=== PATIENT | female | born 1990 | race Caucasian/White ===

== ENCOUNTER 2016-08-10 06:42 | Emergency (ER) | payer MEDICAID ==
[2016-08-10 06:42] VITALS: BMI 34.4
[2016-08-10 07:01] VITALS: BP 129/58; PULSE 92; TEMP 97.8
--- NOTE | 2016-08-10 08:48 | EDPRACDOC ---
- General Information Chief Complaint: Neck Pain Stated Complaint: TONGUE PAIN Time Seen by Provider: 08/10/16 08:39 Information Source: Patient Home Medications: Home Medications Amox Tr/Potassium Clavulanate [Augmentin Tablet (875mg/125mg)] 1 tab PO BID #20 tablet 08/10/16 Allergies/Adverse Reactions: Allergies Allergy/AdvReac Type Severity Reaction Status Date / Time No Known Allergies Allergy Verified 05/29/16 03:43 - History of Present Illness Onset: 3 days HPI: PAIN LEFT SIDE OF MANDIBLE, AND SOME SWELLING UNDER THE LEFT SIDE OF THE TONGUE. NO SORE THROAT, NO FEVER NO TROUBLE SWALLOWING NO TROUBLE BREATHING. SYMPTOMS HAVE BEEN GOING ON FOR APPROXIMATELY 3 DAYS. ED Past Medical History - History Reviewed Yes Nurses notes reviewed and agree except as marked - Patient Medical History Psychological History: Denies: Depression Systemic History: Denies: Anemia, Lupus Surgical History: Reports: Other (). Denies: Hysterectomy Additional Past Surgical History: BILATERAL TUBAL LIGATION - Family Medical History Reports: Hypertension (FATHER), Diabetes (FATHER), Cancer (MGM, PGM), Cardiac Disorders (FATHER). Denies: Stroke - Social Medical History Smoking Status: Heavy tobacco smoker (5 or more cigarettes/day or daily pipe/ cigar) EDM Review of Systems - Review of Systems ROS Negative Except as Marked: Yes All systems reviewed and were negative except as marked - Physical Exam Constitutional: No apparent distress, Alert Last recorded Vital Signs: Last Vital Signs Temp 97.8 F 08/10/16 06:57 Pulse 92 08/10/16 06:57 Resp 16 08/10/16 06:57 BP 129/58 L 08/10/16 06:57 Pulse Ox 97 08/10/16 06:57 Oxygen Pulse Oxygen Saturation 97 O2 Device Oxygen Flow Rate Fraction of Inspired Oxygen ( FIO2) - HEENT Head: Normal Eye Exam: Normal Oropharynx: Normal, Other (FLOOR OF MOUTH IS SOFT, NO PALPABLE MASSES.) Tympanic Membrane: Normal ENT EAC: Normal TMJ: Normal Nose: No Symptoms Reported Neck: Other (LEFT SUBMANDIBULAR SALIVARY GLAND SLIGHTLY SWOLLEN TENDER PALPATION.). negative: Limited ROM, Lymphadenopathy, Meningeal Signs - Departure Condition: Stable Final Diagnosis: Sialadenitis Education/Counseling Given To: Patient Education/Counseling Given Regarding: Diagnosis, Treatment, Prognosis Referrals: Mari Valle PA [Primary Care Provider] - One Week José Luis Enacrnacion DO [Staff Physician] - One Week Prescriptions: Amox Tr/Potassium Clavulanate [Augmentin Tablet (875mg/125mg)] 1 tab PO BID #20 tablet Additional Instructions: USE SOUR CANDY FREQUENTLY. RETURN FOR ANY SWELLING UNDER THE TONGUE OR THE TOP PART OF THE NECK. RETURN TO THE EMERGENCY DEPARTMENT FOR ANY DIFFICULTY SWALLOWING OR DIFFICULTY BREATHING.
== END 2016-08-10 09:20 | disposition home or self-care (01) ==
LOC: ED 06:42
DX: K11.20 Sialoadenitis, unspecified (principal)
CPT/HCPCS: 99282